=== PATIENT | male | born 1980 | race Caucasian/White ===

== ENCOUNTER 2017-06-27 01:20 | Emergency (ER) | payer SELFPAY ==
[~2017-06-27] VITALS: Ht 175.3 cm; Wt 93.9 kg
[2017-06-27 01:35] VITALS: BP_SYST 142
[2017-06-27 02:05] VITALS: BP_SYST 143
== END 2017-06-27 02:05 ==
LOC: SED 01:20
DX: Z02.89 Encounter for other administrative examinations (principal); R03.0 Elevated blood-pressure reading, without diagnosis of hypertension; V89.2XXA Person injured in unspecified motor-vehicle accident, traffic, initial encounter; Y93.89 Activity, other specified; Y92.411 Interstate highway as the place of occurrence of the external cause; Y99.8 Other external cause status
CPT/HCPCS: 99283